=== PATIENT | female | born 1985 | race Caucasian/White ===

== ENCOUNTER 2021-05-26 14:23 | Emergency (ER) | payer OTHER ==
[~2021-05-26] VITALS: Ht 170.2 cm; Wt 72.6 kg
--- NOTE | 2021-05-26 14:45 | NUR ---
TO ER BED 4. BIB SELF SENT HERE BY URGENT [facility]ARE FOR FURTHER EVALUATION, DUE TO BILI =2.8. PT CHANGED INTO GOWN. NO RESPIRATORY DISTRESS NOTED. CONNECTED TO MONITOR. AWAITING MD TATE
--- NOTE | 2021-05-26 14:56 | NUR ---
ULTRASOUND AT BEDSIDE
--- NOTE | 2021-05-26 15:06 | NUR ---
LAB AT BEDSIDE
--- NOTE | 2021-05-26 15:11 | NUR ---
URINE SAMPLE COLLECTED AND SENT TO LAB
[2021-05-26 15:30] LABS: BASOPHILS % (AUTO) 0.2 % (0.0-2.0); EOSINOPHILS % (AUTO) 1.8 % (0.0-6.0); HEMATOCRIT 42 % (33-45); HEMOGLOBIN 14.1 g/dL (11.5-14.8); LYMPHOCYTES # (AUTO) 1.1 K/uL (0.8-4.8); LYMPHOCYTES % (AUTO) 23.4 % (20.0-44.0); MEAN CORPUSCULAR HGB CONC 34 g/dl (31.0-36.0); MEAN CORPUSCULAR VOLUME 89 fL (82-100); MONOCYTES # (AUTO) 0.5 K/uL (0.1-1.30); MONOCYTES % (AUTO) 9.7 % (2.0-12.0); NEUTROPHILS # (AUTO) 3.2 K/uL (1.8-8.9); NEUTROPHILS % (AUTO) 64.9 % (43.0-81.0); PLATELET COUNT (AUTO) 166 K/uL (150-450); RED BLOOD CELL COUNT(AUTO) 4.69 MIL/uL (4.0-5.2); WHITE BLOOD COUNT (AUTO) 4.9 K/uL (4.3-11.0)
[2021-05-26 15:58] LABS: ALBUMIN 4.1 g/dL (3.4-5.0); BILIRUBIN,DIRECT 0.4 mg/dL (0.0-0.2); BILIRUBIN,TOTAL 2.6 mg/dL (0.2-1.0); CALCIUM, SERUM 9.5 mg/dL (8.5-10.1); CREATININE 0.7 mg/dL (0.6-1.3); POTASSIUM 3.5 mmol/L (3.5-5.1); TOTAL PROTEIN, SERUM 8.2 g/dL (6.4-8.2)
[2021-05-26 16:12] LABS: BILIRUBIN,URINE NEGATIVE (NEGATIVE); COLOR,URINE YELLOW (YELLOW); LEUKOCYTE ESTERASE ,URINE SMALL (NEGATIVE); NITRITE, URINE POSITIVE (NEGATIVE); PROTEIN,URINE NEGATIVE (NEGATIVE); UGLUCOSE NEGATIVE (NEGATIVE); UROBILINOGEN,URINE 0.2 EU/dL (0.2)
[2021-05-26 16:23] LABS: BACTERIA,URINE Few /HPF (None Seen); SQUAMOUS EPITHELIAL CELL,UR Few /HPF (None Seen)
[2021-05-26] MEDS ORDERED: HYDR30CR79 TP (16:57)
[2021-05-26] MEDS ORDERED: CEPH500C2 PO (16:57)
--- NOTE | 2021-05-26 17:23 | NUR ---
Patient discharged to home in stable condition. Written and verbal after care instructions given. Patient verbalizes understanding of instruction.
[2021-05-26 17:33] VITALS: BP 123/80
== END 2021-05-26 17:45 | disposition home or self-care (01) ==
LOC: ER 14:44
DX: E80.6 Other disorders of bilirubin metabolism (principal); R82.81 Pyuria; K64.9 Unspecified hemorrhoids
CPT/HCPCS: 36415; 76705-TC; 80048-TC; 80076-TC; 81001; 83690-TC; 84702-TC; 85025-TC; 87086-TC